=== PATIENT | male | born 1940 | race Hispanic/Latino ===

== ENCOUNTER 2020-02-26 09:54 | Outpatient (CLI) | payer MEDICARE ==
--- NOTE | 2020-02-26 10:25 | ULT ---
Sonogram right upper quadrant HISTORY: Right upper quadrant pain. FINDINGS: Small shadowing echogenic foci are present within the dependent portion of the gallbladder lumen. No gallbladder wall thickening or pericholecystic fluid. Common duct is 0.5 cm. Liver unremarkable without focal mass or intrahepatic biliary dilatation. No free fluid. IMPRESSION : Cholelithiasis. No evidence of acute biliary obstruction.
== END 2020-02-26 09:55 | disposition home or self-care (01) ==
LOC: BICULT 09:54
PROVIDERS: ATTEND Family Medicine
DX: R10.9 Unspecified abdominal pain (principal); K80.20 Calculus of gallbladder without cholecystitis without obstruction
CPT/HCPCS: 76705

== ENCOUNTER 2020-08-20 12:01 | Outpatient (CLI) | payer MEDICARE ==
[2020-08-20 14:41] LABS: Bilirubin Neg (Negative); Blood, Urine 10 (Negative); Clarity Clear (Clear); Glucose, Urine (Dipstick) Normal (Negative); Ketone, Urine Negative (Negative); Leukocyte Negative (Negative); Nitrite Negative (Negative); Protein, Urine (Dipstick) Negative (Neg-Trace); Urobilinogen Normal mg/dL (Less than 2)
[2020-08-20 14:51] LABS: Hemoglobin 12.9 g/dL (13.5-17.5); Mean Corpuscular HGB CONC 33.4 g/dL (32.0-36.0); Mean Corpuscular Hemoglobin 28.5 pg (27.0-33.0); Mean Corpuscular Volume 85.2 fl (81.2-95.1); Mean Platelet Volume 11.2 fl (7.4-10.4); Platelet Count 174 10x3/uL (150-450); RBC Distribution Width 12.8 % (11.5-14.5); Red Blood Cell (RBC) Count 4.53 10x6/uL (4.32-5.72); White Blood Cell (WBC) Count 7.5 10x3/uL (3.5-10.5)
[2020-08-20 14:53] LABS: Bacteria/HPF None Seen HPF (None Seen); RBC/HPF None Seen HPF (0-3); Squamous Epithelial 0-3 HPF (0-3); WBC/HPF None Seen HPF (0-3)
[2020-08-20 15:12] LABS: Anion Gap 13 mmol/L (10-20); BUN (Urea Nitrogen) 12 mg/dL (8.4-25.7); Calc. Creatinine Clearance 0 mL/min (70-130); Carbon Dioxide 25 mmol/L (23-31); Chloride 108 mmol/L (98-107); Glucose 144 mg/dL (83-110); Sodium 141 mmol/L (136-145)
[2020-08-21 01:35] LABS: SARS-CoV-2 PCR by NAA Not Detected (NotDetected)
== END 2020-08-20 12:02 | disposition home or self-care (01) ==
LOC: LABBT 12:01
PROVIDERS: ATTEND Urology
DX: Z01.818 Encounter for other preprocedural examination (principal); C61 Malignant neoplasm of prostate; D41.4 Neoplasm of uncertain behavior of bladder; N30.40 Irradiation cystitis without hematuria; R31.0 Gross hematuria; N39.3 Stress incontinence (female) (male); N52.31 Erectile dysfunction following radical prostatectomy; Z20.822 Contact with and (suspected) exposure to COVID-19
CPT/HCPCS: 80048; 81001; 85027; 87086; 93005; U0003; U0005; 87635; 93010

== ENCOUNTER 2020-08-25 06:27 | Day surgery (SDC) | payer MEDICARE ==
[2020-08-24 10:27] VITALS: BMI 27.6
[2020-08-25] MEDS ORDERED: Levofloxacin 500 mg/D5W 100 ml Premix Bag ONE (06:53)
[2020-08-25] MEDS ORDERED: Fentanyl 100 MCG/2 ML VIAL ONE (08:21)
[2020-08-25] MEDS ORDERED: PROPOFOL 40 ML ONE (08:22)
[2020-08-25] MEDS ORDERED: ePHEDrine Sulfate 50 MG/10 ML VIAL ONE (08:36)
== END 2020-08-25 10:16 | disposition home or self-care (01) ==
LOC: SDC 06:27
PROVIDERS: ATTEND Urology
PROC: 0TBB8ZX Excision of Bladder, Via Natural or Artificial Opening Endoscopic, Diagnostic (ICD-10-PCS; principal; 2020-08-25)
DX: N30.81 Other cystitis with hematuria (principal); N39.3 Stress incontinence (female) (male); N52.31 Erectile dysfunction following radical prostatectomy; I10 Essential (primary) hypertension; E78.5 Hyperlipidemia, unspecified; I25.10 Atherosclerotic heart disease of native coronary artery without angina pectoris; I25.2 Old myocardial infarction; Z85.46 Personal history of malignant neoplasm of prostate; Z79.82 Long term (current) use of aspirin; Z79.899 Other long term (current) drug therapy; Z95.1 Presence of aortocoronary bypass graft
CPT/HCPCS: 88305; J1956; J2704; J3010

== ENCOUNTER 2020-08-26 14:42 | Outpatient (CLI) | payer MEDICARE ==
[~2020-08-26 14:42] MED LIST: Iopamidol-370 76% 500 ML 1 ML ONE
== END 2020-08-26 14:43 | disposition home or self-care (01) ==
LOC: BICCT 14:42
PROVIDERS: ATTEND Urology
DX: R31.0 Gross hematuria (principal); K86.2 Cyst of pancreas; N28.1 Cyst of kidney, acquired; K80.20 Calculus of gallbladder without cholecystitis without obstruction; Z90.79 Acquired absence of other genital organ(s)
CPT/HCPCS: 74178; Q9967

== ENCOUNTER 2024-03-30 14:11 | Emergency (ER) | payer MEDICARE ==
[2024-03-30 14:43] LABS: #Basophils 0.11 10x3/uL (0.0-0.2); %Eosinophils 3.3 % (0.0-10.0); %Monocytes 7.1 % (0.0-10.0); %Neutrophils 68.4 % (42.0-75.0); Hematocrit 38.4 % (42.0-52.0); Hemoglobin 13.3 g/dL (14.0-18.0); Mean Corpuscular HGB CONC 34.6 g/dL (32.0-36.0); Mean Corpuscular Volume 83.7 fL (78.0-98.0); Mean Platelet Volume 10.8 fL (7.4-10.4); Platelet Count 210 10x3/uL (130-400); RBC Distribution Width 12.8 % (11.5-14.5); Red Blood Cell (RBC) Count 4.59 mill/uL (4.70-6.10)
[2024-03-30 14:56] LABS: ALT (SGPT) 34 U/L (8-55); AST (SGOT) 47 U/L (5-34); Albumin 3.6 g/dL (3.4-4.8); Alkaline Phosphatase 112 U/L (40-110); Anion Gap 12 mmol/L (10-20); BUN (Urea Nitrogen) 14 mg/dL (8.4-25.7); Bilirubin, Total 1.3 mg/dL (0.2-1.2); Calc. Creatinine Clearance 0 mL/min (70-130); Calcium 8.9 mg/dL (7.8-10.44); Carbon Dioxide 19 mmol/L (23-31); Chloride 113 mmol/L (98-107); Estimated GFR 59; Globulin 4.1 g/dL (2.4-3.5); Glucose 181 mg/dL (83-110); Lipase 9 U/L (8-78); Potassium 4.1 mmol/L (3.5-5.1); Protein, Total 7.7 g/dL (5.8-8.1); Sodium 140 mmol/L (136-145)
[2024-03-30 15:01] LABS: Troponin I Less than 0.010 ng/mL (< 0.028)
[2024-03-30] MEDS ORDERED: Iopamidol-370 76% 500 ML MDV (1 ML CHARGE) ONE (15:52)
[2024-03-30] MEDS ORDERED: Magnevist 469MG/ML 20 ML VIAL ONE (15:59)
[2024-03-30 17:33] LABS: Bilirubin Negative (Negative); Blood, Urine Trace (Negative); Clarity Clear (Clear); Glucose, Urine (Dipstick) Negative (Negative); Ketone, Urine Negative (Negative); Leukocyte Negative (Negative); Nitrite Negative (Negative); Protein, Urine (Dipstick) Negative (Neg-Trace); Urobilinogen 0.2 mg/dL (Less than 2)
[2024-03-30 17:38] LABS: Bacteria/HPF None Seen HPF (None Seen); CAUTI Indications for Culture Dysuria,urgency,freq; RBC/HPF None Seen HPF (0-3); Squamous Epithelial 0-3 HPF (0-3); WBC/HPF None Seen HPF (0-3)
[2024-03-30 17:39] LABS: Urine Culture Reflex No No
[2024-03-30] MEDS ORDERED: traMADol HCl 50 MG TAB ONE (17:58)
== END 2024-03-30 18:44 | disposition home or self-care (01) ==
LOC: ERS 14:11
DX: S32.031A Stable burst fracture of third lumbar vertebra, initial encounter for closed fracture (principal); K80.20 Calculus of gallbladder without cholecystitis without obstruction; K57.30 Diverticulosis of large intestine without perforation or abscess without bleeding; I10 Essential (primary) hypertension; E78.5 Hyperlipidemia, unspecified; Z55.6 Problems related to health literacy
CPT/HCPCS: 36415; 72158; 74177; 76705; 80053; 81001; 83690; 84484; 85025; 93005; Q9967

== ENCOUNTER 2024-05-24 13:40 | Outpatient (CLI) | payer OTHER | END 2024-05-24 13:41 | disposition home or self-care (01) | LOC: BICMAMMO 13:40 | PROVIDERS: ATTEND Family Medicine | DX: S32.031D Stable burst fracture of third lumbar vertebra, subsequent encounter for fracture with routine healing (principal); M85.851 Other specified disorders of bone density and structure, right thigh; M85.852 Other specified disorders of bone density and structure, left thigh | CPT/HCPCS: 77080 ==

== ENCOUNTER 2025-02-17 22:10 | Inpatient (IN) | payer MEDICARE ==
[2025-02-18 01:58] LABS: Hematocrit 36.7 % (42.0-52.0); Hemoglobin 12.1 g/dL (14.0-18.0); Mean Corpuscular Hemoglobin 27.0 pg (27.0-31.0); Mean Corpuscular Volume 81.9 fL (78.0-98.0); Platelet Count 204 10x3/uL (130-400); Red Blood Cell (RBC) Count 4.48 mill/uL (4.70-6.10); White Blood Cell (WBC) Count 21.84 10x3/uL (4.8-10.8)
[2025-02-18 02:12] LABS: ALT (SGPT) 35 U/L (Less than 45); AST (SGOT) 64 U/L (11-34); Albumin 2.6 g/dL (3.1-4.5); Alkaline Phosphatase 106 U/L (40-110); Anion Gap 15 mmol/L (10-20); BUN (Urea Nitrogen) 26 mg/dL (8.4-25.7); Bilirubin, Total 2.5 mg/dL (0.3-1.2); Calc. Creatinine Clearance 0 mL/min (70-130); Calcium 9.1 mg/dL (7.8-10.44); Carbon Dioxide 25 mmol/L (23-31); Chloride 109 mmol/L (98-107); Globulin 4.3 g/dL (2.4-3.5); Glucose 180 mg/dL (83-110); Potassium 3.9 mmol/L (3.5-5.1); Sodium 145 mmol/L (136-145)
[2025-02-18 02:21] LABS: Burr Cells SLIGHT = 2-5 cells HPF (0-1); Dohle Bodies SLIGHT; Macrocytosis SLIGHT = 6-15 cells HPF (0-5); Platelet Adequacy Comment Platelets Normal; Polychromasia SLIGHT = 2-3 cells HPF (0-2); Smudge Cells 2.0 %; Target Cells SLIGHT = 2-5 cells HPF (0-1)
[2025-02-18] MEDS ORDERED: Vancomycin 1 GM/200 ML (FROZEN) BAG ONE (05:39)
[2025-02-18 05:46] LABS: Bacteria/HPF None Seen HPF (None Seen); CAUTI Indications for Culture Dysuria,urgency,freq; Glucose, Urine (Dipstick) Normal (Negative); Leukocyte Negative Leu/uL (Negative); Protein, Urine (Dipstick) 20 mg/dL (Neg-Trace); Specific Gravity, Urine 1.046 (1.002-1.036); WBC/HPF 0-3 HPF (0-3)
[2025-02-18] MEDS ORDERED: Ondansetron PF 4 MG/2 ML Vial IVP PRN (05:50)
[2025-02-18] MEDS ORDERED: Calcium Carbonate 500 MG ChewTAB PO PRN (05:50)
[2025-02-18] MEDS ORDERED: Senokot S 8.6-50 MG TAB PO PRN (05:50)
[2025-02-18 05:56] LABS: Urine Culture Reflex No No
[2025-02-18] MEDS ORDERED: VANCOMYCIN IVPB PRN ×2 (06:14→15:29)
[2025-02-18] MEDS ORDERED: ZOSYN IVPB PRN ×2 (06:14→15:29)
[2025-02-18] MEDS ORDERED: Dextrose 50% Abboject 50 ML SYRINGE SLOW IVP PRN (06:22)
[2025-02-18] MEDS ORDERED: Glucagon 1 MG/ML KIT IM PRN (06:22)
[2025-02-18 10:30] LABS: #Basophils 0.03 10x3/uL (0.0-0.2); #Eosinophils 0.33 10x3/uL (0.0-0.7); #Monocytes 0.93 10x3/uL (0.11-0.59); #Neutrophils 17.09 10x3/uL (1.40-6.50); %Basophils 0.2 % (0.0-1.0); %Eosinophils 1.7 % (0.0-10.0); %Lymphocytes 4.9 % (21.0-51.0); %Monocytes 4.8 % (0.0-10.0); %Neutrophils 88.1 % (42.0-75.0); Hematocrit 32.1 % (42.0-52.0); Hemoglobin 10.9 g/dL (14.0-18.0); Mean Corpuscular Hemoglobin 27.3 pg (27.0-31.0); Mean Corpuscular Volume 80.5 fL (78.0-98.0); Platelet Count 165 10x3/uL (130-400); Red Blood Cell (RBC) Count 3.99 mill/uL (4.70-6.10); White Blood Cell (WBC) Count 19.37 10x3/uL (4.8-10.8)
[2025-02-18 10:42] LABS: Anion Gap 17 mmol/L (10-20); BUN (Urea Nitrogen) 24 mg/dL (8.4-25.7); Calc. Creatinine Clearance 45 mL/min (70-130); Calcium 8.3 mg/dL (7.8-10.44); Carbon Dioxide 23 mmol/L (23-31); Chloride 111 mmol/L (98-107); Glucose 160 mg/dL (83-110); Potassium 3.8 mmol/L (3.5-5.1); Sodium 147 mmol/L (136-145)
[2025-02-18 10:53] LABS: CRP, High Sensitivity at Bryan 21.21 mg/dL (< or = 0.5)
[2025-02-18] MEDS ORDERED: Iopamidol-370 76% 500 ML MDV (1 ML CHARGE) ONE (11:14)
[2025-02-18] MEDS ORDERED: Vancomycin Dose by Levels Sliding Scale (Wt 71-99) FS SCH (11:30)
[2025-02-18 15:32] VITALS: BMI 26.9
[2025-02-18] MEDS: Metoprolol Succinate XL 100 MG ER.TAB PO SCH (21:31)
[2025-02-18] MEDS: Aspirin 325 MG TAB PO SCH (21:32)
[2025-02-18] MEDS: Linezolid 600 MG TAB PO SCH (21:32)
[2025-02-19 04:37] LABS: #Basophils 0.06 10x3/uL (0.0-0.2); #Eosinophils 0.03 10x3/uL (0.0-0.7); #Monocytes 1.04 10x3/uL (0.11-0.59); #Neutrophils 20.41 10x3/uL (1.40-6.50); %Basophils 0.3 % (0.0-1.0); %Eosinophils 0.1 % (0.0-10.0); %Lymphocytes 5.4 % (21.0-51.0); %Monocytes 4.5 % (0.0-10.0); %Neutrophils 89.0 % (42.0-75.0); Hematocrit 36.1 % (42.0-52.0); Hemoglobin 11.8 g/dL (14.0-18.0); Mean Corpuscular Hemoglobin 27.0 pg (27.0-31.0); Mean Corpuscular Volume 82.6 fL (78.0-98.0); Platelet Count 186 10x3/uL (130-400); Red Blood Cell (RBC) Count 4.37 mill/uL (4.70-6.10); White Blood Cell (WBC) Count 22.93 10x3/uL (4.8-10.8)
[2025-02-19 04:54] LABS: ALT (SGPT) 62 U/L (Less than 45); AST (SGOT) 107 U/L (11-34); Albumin 2.0 g/dL (3.1-4.5); Alkaline Phosphatase 108 U/L (40-110); Anion Gap 13 mmol/L (10-20); BUN (Urea Nitrogen) 22 mg/dL (8.4-25.7); Bilirubin, Total 1.9 mg/dL (0.3-1.2); Calc. Creatinine Clearance 51 mL/min (70-130); Calcium 8.6 mg/dL (7.8-10.44); Carbon Dioxide 23 mmol/L (23-31); Chloride 113 mmol/L (98-107); Globulin 3.8 g/dL (2.4-3.5); Glucose 159 mg/dL (83-110); Potassium 3.6 mmol/L (3.5-5.1); Sodium 145 mmol/L (136-145)
[2025-02-19] MEDS: FLU (Fluad Triv) 25-26 (65UP)PF 45 MCG/0.5 ML Syringe IM ONE (11:35)
[2025-02-19 12:42] VITALS: BMI 26.9
[2025-02-19] MEDS: PNEUMOC 20-VAL CONJ-DIP CRM/PF 0.5 ML SYRINGE IM ONE (14:03)
[2025-02-19] MEDS: Linezolid 600 MG in Premix 1 BAG IVPB SCH (21:23)
[2025-02-20 04:14] LABS: #Basophils 0.05 10x3/uL (0.0-0.2); #Eosinophils 0.42 10x3/uL (0.0-0.7); #Monocytes 1.19 10x3/uL (0.11-0.59); #Neutrophils 12.99 10x3/uL (1.40-6.50); %Basophils 0.3 % (0.0-1.0); %Eosinophils 2.6 % (0.0-10.0); %Lymphocytes 8.1 % (21.0-51.0); %Monocytes 7.4 % (0.0-10.0); %Neutrophils 80.9 % (42.0-75.0); Hematocrit 32.0 % (42.0-52.0); Hemoglobin 10.8 g/dL (14.0-18.0); Mean Corpuscular Hemoglobin 27.7 pg (27.0-31.0); Mean Corpuscular Volume 82.1 fL (78.0-98.0); Platelet Count 191 10x3/uL (130-400); Red Blood Cell (RBC) Count 3.90 mill/uL (4.70-6.10); White Blood Cell (WBC) Count 16.08 10x3/uL (4.8-10.8)
[2025-02-20 04:23] LABS: Anion Gap 9 mmol/L (10-20); BUN (Urea Nitrogen) 21 mg/dL (8.4-25.7); Calc. Creatinine Clearance 56 mL/min (70-130); Calcium 8.0 mg/dL (7.8-10.44); Carbon Dioxide 24 mmol/L (23-31); Chloride 113 mmol/L (98-107); Glucose 134 mg/dL (83-110); Potassium 3.2 mmol/L (3.5-5.1); Sodium 143 mmol/L (136-145)
[2025-02-20] MEDS ORDERED: Bupivacaine 0.25% HCL 30 ML VIAL ONE (11:22)
[2025-02-20] MEDS ORDERED: Ondansetron PF 4 MG/2 ML Vial ONE (12:14)
[2025-02-20] MEDS ORDERED: Lidocaine 1% PF 5 ML VIAL ONE (12:14)
[2025-02-20] MEDS ORDERED: PROPOFOL 200 MG/20 ML VIAL ONE (12:35)
[2025-02-20] MEDS ORDERED: fentaNYL PF 100 MCG/2 ML SYRINGE ONE (12:39)
[2025-02-21 05:36] LABS: #Basophils 0.04 10x3/uL (0.0-0.2); #Eosinophils 0.65 10x3/uL (0.0-0.7); #Monocytes 1.08 10x3/uL (0.11-0.59); #Neutrophils 9.34 10x3/uL (1.40-6.50); %Basophils 0.3 % (0.0-1.0); %Eosinophils 5.3 % (0.0-10.0); %Lymphocytes 9.3 % (21.0-51.0); %Monocytes 8.8 % (0.0-10.0); %Neutrophils 75.7 % (42.0-75.0); Hematocrit 32.6 % (42.0-52.0); Hemoglobin 10.4 g/dL (14.0-18.0); Mean Corpuscular Hemoglobin 27.4 pg (27.0-31.0); Mean Corpuscular Volume 85.8 fL (78.0-98.0); Platelet Count 181 10x3/uL (130-400); Red Blood Cell (RBC) Count 3.80 mill/uL (4.70-6.10); White Blood Cell (WBC) Count 12.34 10x3/uL (4.8-10.8)
[2025-02-21 05:52] LABS: Anion Gap 10 mmol/L (10-20); BUN (Urea Nitrogen) 23 mg/dL (8.4-25.7); Calc. Creatinine Clearance 56 mL/min (70-130); Calcium 7.8 mg/dL (7.8-10.44); Carbon Dioxide 23 mmol/L (23-31); Chloride 111 mmol/L (98-107); Glucose 165 mg/dL (83-110); Potassium 3.3 mmol/L (3.5-5.1); Sodium 141 mmol/L (136-145)
[2025-02-22 06:56] LABS: #Basophils 0.03 10x3/uL (0.0-0.2); #Eosinophils 0.84 10x3/uL (0.0-0.7); #Monocytes 0.92 10x3/uL (0.11-0.59); #Neutrophils 11.04 10x3/uL (1.40-6.50); %Basophils 0.2 % (0.0-1.0); %Eosinophils 5.9 % (0.0-10.0); %Lymphocytes 8.5 % (21.0-51.0); %Monocytes 6.5 % (0.0-10.0); %Neutrophils 77.8 % (42.0-75.0); Hematocrit 30.1 % (42.0-52.0); Hemoglobin 9.9 g/dL (14.0-18.0); Mean Corpuscular Hemoglobin 26.9 pg (27.0-31.0); Mean Corpuscular Volume 81.8 fL (78.0-98.0); Platelet Count 194 10x3/uL (130-400); Red Blood Cell (RBC) Count 3.68 mill/uL (4.70-6.10); White Blood Cell (WBC) Count 14.19 10x3/uL (4.8-10.8)
[2025-02-22 07:06] LABS: Anion Gap 14 mmol/L (10-20); BUN (Urea Nitrogen) 17 mg/dL (8.4-25.7); Calc. Creatinine Clearance 64 mL/min (70-130); Calcium 7.3 mg/dL (7.8-10.44); Carbon Dioxide 20 mmol/L (23-31); Chloride 108 mmol/L (98-107); Glucose 145 mg/dL (83-110); Potassium 3.5 mmol/L (3.5-5.1); Sodium 138 mmol/L (136-145)
[2025-02-22] MEDS: Sodium Bicarbonate Tab 325 MG TAB PO SCH (20:14)
[2025-02-23] MEDS: Acetaminophen 325 MG TAB PO PRN (05:34)
[2025-02-23 06:04] LABS: #Basophils 0.04 10x3/uL (0.0-0.2); #Eosinophils 0.64 10x3/uL (0.0-0.7); #Monocytes 0.88 10x3/uL (0.11-0.59); #Neutrophils 13.45 10x3/uL (1.40-6.50); %Basophils 0.2 % (0.0-1.0); %Eosinophils 3.9 % (0.0-10.0); %Lymphocytes 7.5 % (21.0-51.0); %Monocytes 5.4 % (0.0-10.0); %Neutrophils 82.1 % (42.0-75.0); Hematocrit 30.4 % (42.0-52.0); Hemoglobin 9.7 g/dL (14.0-18.0); Mean Corpuscular Hemoglobin 26.7 pg (27.0-31.0); Mean Corpuscular Volume 83.7 fL (78.0-98.0); Platelet Count 218 10x3/uL (130-400); Red Blood Cell (RBC) Count 3.63 mill/uL (4.70-6.10); White Blood Cell (WBC) Count 16.39 10x3/uL (4.8-10.8)
[2025-02-23 06:31] LABS: Anion Gap 8 mmol/L (10-20); BUN (Urea Nitrogen) 15 mg/dL (8.4-25.7); Calc. Creatinine Clearance 63 mL/min (70-130); Calcium 7.5 mg/dL (7.8-10.44); Carbon Dioxide 21 mmol/L (23-31); Chloride 109 mmol/L (98-107); Glucose 138 mg/dL (83-110); Potassium 3.3 mmol/L (3.5-5.1); Sodium 135 mmol/L (136-145)
[2025-02-24 04:59] LABS: #Basophils 0.05 10x3/uL (0.0-0.2); #Eosinophils 0.26 10x3/uL (0.0-0.7); #Monocytes 0.66 10x3/uL (0.11-0.59); #Neutrophils 13.62 10x3/uL (1.40-6.50); %Basophils 0.3 % (0.0-1.0); %Eosinophils 1.6 % (0.0-10.0); %Lymphocytes 7.9 % (21.0-51.0); %Monocytes 4.1 % (0.0-10.0); %Neutrophils 85.2 % (42.0-75.0); Hematocrit 29.4 % (42.0-52.0); Hemoglobin 9.5 g/dL (14.0-18.0); Mean Corpuscular Hemoglobin 26.8 pg (27.0-31.0); Mean Corpuscular Volume 83.1 fL (78.0-98.0); Platelet Count 230 10x3/uL (130-400); Red Blood Cell (RBC) Count 3.54 mill/uL (4.70-6.10); White Blood Cell (WBC) Count 16.00 10x3/uL (4.8-10.8)
[2025-02-24 05:18] LABS: Anion Gap 12 mmol/L (10-20); BUN (Urea Nitrogen) 14 mg/dL (8.4-25.7); Calc. Creatinine Clearance 64 mL/min (70-130); Calcium 7.4 mg/dL (7.8-10.44); Carbon Dioxide 20 mmol/L (23-31); Chloride 109 mmol/L (98-107); Glucose 121 mg/dL (83-110); Potassium 3.7 mmol/L (3.5-5.1); Sodium 137 mmol/L (136-145)
[2025-02-24 05:19] LABS: CRP, High Sensitivity at Bryan 5.07 mg/dL (< or = 0.5)
[2025-02-24] MEDS: Magnesium Oxide 400 MG TAB PO SCH (09:11)
[2025-02-25 05:15] LABS: #Basophils 0.04 10x3/uL (0.0-0.2); #Eosinophils 0.60 10x3/uL (0.0-0.7); #Monocytes 0.69 10x3/uL (0.11-0.59); #Neutrophils 12.48 10x3/uL (1.40-6.50); %Basophils 0.3 % (0.0-1.0); %Eosinophils 4.0 % (0.0-10.0); %Lymphocytes 8.1 % (21.0-51.0); %Monocytes 4.6 % (0.0-10.0); %Neutrophils 82.3 % (42.0-75.0); Hematocrit 29.7 % (42.0-52.0); Hemoglobin 9.9 g/dL (14.0-18.0); Mean Corpuscular Hemoglobin 27.1 pg (27.0-31.0); Mean Corpuscular Volume 81.4 fL (78.0-98.0); Platelet Count 222 10x3/uL (130-400); Red Blood Cell (RBC) Count 3.65 mill/uL (4.70-6.10); White Blood Cell (WBC) Count 15.14 10x3/uL (4.8-10.8)
[2025-02-25 05:23] LABS: Anion Gap 10 mmol/L (10-20); BUN (Urea Nitrogen) 10 mg/dL (8.4-25.7); Calc. Creatinine Clearance 75 mL/min (70-130); Calcium 7.3 mg/dL (7.8-10.44); Carbon Dioxide 21 mmol/L (23-31); Chloride 111 mmol/L (98-107); Glucose 119 mg/dL (83-110); Potassium 3.7 mmol/L (3.5-5.1); Sodium 138 mmol/L (136-145)
[2025-02-26 05:26] LABS: #Basophils 0.04 10x3/uL (0.0-0.2); #Eosinophils 0.31 10x3/uL (0.0-0.7); #Monocytes 0.73 10x3/uL (0.11-0.59); #Neutrophils 10.42 10x3/uL (1.40-6.50); %Basophils 0.3 % (0.0-1.0); %Eosinophils 2.4 % (0.0-10.0); %Lymphocytes 10.7 % (21.0-51.0); %Monocytes 5.6 % (0.0-10.0); %Neutrophils 80.5 % (42.0-75.0); Hematocrit 31.8 % (42.0-52.0); Hemoglobin 10.6 g/dL (14.0-18.0); Mean Corpuscular Hemoglobin 26.9 pg (27.0-31.0); Mean Corpuscular Volume 80.7 fL (78.0-98.0); Platelet Count 244 10x3/uL (130-400); Red Blood Cell (RBC) Count 3.94 mill/uL (4.70-6.10); White Blood Cell (WBC) Count 12.95 10x3/uL (4.8-10.8)
[2025-02-26 05:47] LABS: Anion Gap 10 mmol/L (10-20); BUN (Urea Nitrogen) 10 mg/dL (8.4-25.7); Calc. Creatinine Clearance 77 mL/min (70-130); Calcium 7.6 mg/dL (7.8-10.44); Carbon Dioxide 23 mmol/L (23-31); Chloride 109 mmol/L (98-107); Glucose 129 mg/dL (83-110); Potassium 3.6 mmol/L (3.5-5.1); Sodium 138 mmol/L (136-145)
[2025-02-26] MEDS: Losartan 25 MG TAB PO SCH (09:09)
[2025-02-26] MEDS: Cephalexin 250 MG CAP PO SCH (12:23)
[2025-02-26 15:40] VITALS: BP 143/74; TEMP 98.1
== END 2025-02-26 15:19 | disposition home or self-care (01) | DRG 854 ==
LOC: ERS 22:10 → ERHOLD 02-18 05:48 → 2NO 02-18 14:40 → SURG A 02-20 19:26
PROVIDERS: ADMIT Internal Medicine; ATTEND Internal Medicine
PROC: 3E03329 Introduction of Other Anti-infective into Peripheral Vein, Percutaneous Approach (ICD-10-PCS; 2025-02-18)
PROC: 0JBC0ZZ Excision of Pelvic Region Subcutaneous Tissue and Fascia, Open Approach (ICD-10-PCS; principal; 2025-02-20)
DX: A41.9 Sepsis, unspecified organism (principal); E87.20 Acidosis, unspecified; N17.9 Acute kidney failure, unspecified; I5A Non-ischemic myocardial injury (non-traumatic); L02.214 Cutaneous abscess of groin; I25.10 Atherosclerotic heart disease of native coronary artery without angina pectoris; E78.5 Hyperlipidemia, unspecified; N30.90 Cystitis, unspecified without hematuria; I12.9 Hypertensive chronic kidney disease with stage 1 through stage 4 chronic kidney disease, or unspecified chronic kidney disease; E11.22 Type 2 diabetes mellitus with diabetic chronic kidney disease; N18.30 Chronic kidney disease, stage 3 unspecified; E87.6 Hypokalemia; Z79.82 Long term (current) use of aspirin; Z79.899 Other long term (current) drug therapy
CPT/HCPCS: 36415; 36416; 74177; 76999; 80048; 80053; 81001; 83036; 83605; 84145; 84484; 85025; 86141; 87040; 87070; 87077; 87081; 87086; 87186; 87205; 93005; 96365; 96366; 96368; 96375; 97139; J0169; J0665; J1815; J2020; J2185; J2405; J2543; J2704; J3373; J7120; Q9967

== ENCOUNTER 2025-02-26 19:26 | Observation (INO) | payer MEDICARE ==
[2025-02-26 20:30] LABS: #Basophils 0.05 10x3/uL (0.0-0.2); #Eosinophils Less than 0.03 10x3/uL (0.0-0.7); #Monocytes 0.55 10x3/uL (0.11-0.59); #Neutrophils 16.31 10x3/uL (1.40-6.50); %Basophils 0.3 % (0.0-1.0); %Eosinophils 0.1 % (0.0-10.0); %Lymphocytes 3.9 % (21.0-51.0); %Monocytes 3.1 % (0.0-10.0); %Neutrophils 92.0 % (42.0-75.0); Hematocrit 36.0 % (42.0-52.0); Hemoglobin 12.2 g/dL (14.0-18.0); Mean Corpuscular Hemoglobin 27.1 pg (27.0-31.0); Mean Corpuscular Volume 80.0 fL (78.0-98.0); Platelet Count 255 10x3/uL (130-400); Red Blood Cell (RBC) Count 4.50 mill/uL (4.70-6.10); White Blood Cell (WBC) Count 17.74 10x3/uL (4.8-10.8)
[2025-02-26 20:44] LABS: ALT (SGPT) 20 U/L (Less than 45); AST (SGOT) 25 U/L (11-34); Albumin 2.0 g/dL (3.1-4.5); Alkaline Phosphatase 89 U/L (40-110); Anion Gap 20 mmol/L (10-20); BUN (Urea Nitrogen) 13 mg/dL (8.4-25.7); Bilirubin, Total 0.7 mg/dL (0.3-1.2); Calc. Creatinine Clearance 0 mL/min (70-130); Calcium 8.2 mg/dL (7.8-10.44); Carbon Dioxide 17 mmol/L (23-31); Chloride 106 mmol/L (98-107); Globulin 4.4 g/dL (2.4-3.5); Glucose 176 mg/dL (83-110); Potassium 4.1 mmol/L (3.5-5.1); Sodium 139 mmol/L (136-145)
[2025-02-26 22:09] LABS: Magnesium 2.0 mg/dL (1.6-2.6)
[2025-02-26] MEDS ORDERED: Acetaminophen 325 MG TAB PO PRN (23:26)
[2025-02-26] MEDS ORDERED: Dextrose 50% Abboject 50 ML SYRINGE SLOW IVP PRN (23:51)
[2025-02-26] MEDS ORDERED: Glucagon 1 MG/ML KIT IM PRN (23:51)
[2025-02-27 04:48] LABS: #Basophils 0.04 10x3/uL (0.0-0.2); #Eosinophils 0.04 10x3/uL (0.0-0.7); #Monocytes 0.79 10x3/uL (0.11-0.59); #Neutrophils 13.34 10x3/uL (1.40-6.50); %Basophils 0.3 % (0.0-1.0); %Eosinophils 0.3 % (0.0-10.0); %Lymphocytes 8.9 % (21.0-51.0); %Monocytes 5.0 % (0.0-10.0); %Neutrophils 85.1 % (42.0-75.0); Hematocrit 31.6 % (42.0-52.0); Hemoglobin 10.5 g/dL (14.0-18.0); Mean Corpuscular Hemoglobin 27.4 pg (27.0-31.0); Mean Corpuscular Volume 82.5 fL (78.0-98.0); Platelet Count 224 10x3/uL (130-400); Red Blood Cell (RBC) Count 3.83 mill/uL (4.70-6.10); White Blood Cell (WBC) Count 15.68 10x3/uL (4.8-10.8)
[2025-02-27] MEDS: Cephalexin 250 MG CAP PO SCH (05:12)
[2025-02-27 05:13] LABS: Anion Gap 14 mmol/L (10-20); BUN (Urea Nitrogen) 14 mg/dL (8.4-25.7); Calc. Creatinine Clearance 0 mL/min (70-130); Calcium 7.8 mg/dL (7.8-10.44); Carbon Dioxide 18 mmol/L (23-31); Chloride 109 mmol/L (98-107); Glucose 136 mg/dL (83-110); Potassium 3.8 mmol/L (3.5-5.1); Sodium 137 mmol/L (136-145)
[2025-02-27 05:21] VITALS: BMI 26.7
[2025-02-27] MEDS: Sodium Bicarbonate Tab 325 MG TAB PO SCH (06:42)
[2025-02-27] MEDS: Albumin 25% 25 GM (100 mL) BOT IVPB SCH (06:43)
[2025-02-27] MEDS: Losartan 25 MG TAB PO SCH (08:48)
[2025-02-27] MEDS: Floranex 1 GM Packet PO SCH (08:48)
[2025-02-27] MEDS: Ezetimibe 10 MG TAB PO SCH (08:48)
[2025-02-27 11:18] VITALS: TEMP 98.5
[2025-02-27 13:09] VITALS: BP 135/66
[2025-02-27] MEDS ORDERED: Aspirin 325 MG TAB PO SCH (21:00)
[2025-02-27] MEDS ORDERED: Metoprolol Succinate XL 100 MG ER.TAB PO SCH (21:00)
== END 2025-02-27 13:30 | disposition home health service (06) ==
LOC: ERS 19:26 → PCU 23:14
PROVIDERS: ADMIT Internal Medicine; ATTEND Student in an Organized Health Care Education/Training Program
DX: I45.81 Long QT syndrome (principal); L03.116 Cellulitis of left lower limb; L02.214 Cutaneous abscess of groin; I12.9 Hypertensive chronic kidney disease with stage 1 through stage 4 chronic kidney disease, or unspecified chronic kidney disease; E11.22 Type 2 diabetes mellitus with diabetic chronic kidney disease; N18.30 Chronic kidney disease, stage 3 unspecified; R53.1 Weakness; E78.5 Hyperlipidemia, unspecified; I25.10 Atherosclerotic heart disease of native coronary artery without angina pectoris; Z79.82 Long term (current) use of aspirin; Z79.899 Other long term (current) drug therapy
CPT/HCPCS: 70450; 80048; 80053; 82550; 82962; 83735; 85025 ×2; 93005 ×2; 96374; 96375; 97116; 99285; G0378 ×3; J2185; P9047; 36415; 36416; 93010

== ENCOUNTER 2025-03-01 11:14 | Emergency (ER) | payer MEDICARE | END 2025-03-01 13:50 | disposition home or self-care (01) | LOC: ERS 11:14 | DX: Z48.03 Encounter for change or removal of drains (principal); I10 Essential (primary) hypertension; E78.5 Hyperlipidemia, unspecified; Z79.82 Long term (current) use of aspirin; Z79.899 Other long term (current) drug therapy | CPT/HCPCS: 99282 ==